=== PATIENT | female | born 1975 | race Hispanic/Latino ===

== ENCOUNTER 2018-04-15 09:43 | Outpatient (CLI) | payer BC ==
--- NOTE | 2018-04-15 11:38 | ULT ---
ABDOMINAL ULTRASOUND COMPLETE: History: 43-year-old female with R10.12, right lower quadrant pain. FINDINGS: The liver echogenicity is unremarkable. The gallbladder demonstrates no evidence for gallstones, wall thickening, edema, or pericholecystic fluid. Common bile duct is unremarkable. No intrahepatic ducta l dilatation. No liver masses. Visualized pancreas, IVC, aorta, and spleen are unremarkable. No renal hydronephrosis. No abscess or abnormal fluid collection. IMPRESSION: Normal abdominal ultrasound. POS: [facility]
--- NOTE | 2018-04-15 11:51 | ULT ---
PELVIC ULTRASOUND INCLUDING TRANSABDOMINAL AND TRANSVAGIAL WITH COLOR AND SPECTRAL DOPPLER IMAGING: History: 43-year-old female with history of R10.2, right lower quadrant pain. FINDINGS: The uterus measures 9.0 x 6.3 x 7.3 cm. Endometrium is thickened at 1.9 cm. Right ovary measures 4.6 x 3.4 x 2.3 cm and contains a complex/complicated appearing cystic focus in the right ovary measuring 2.1 x 2.2 x 2.5 cm. The left ovary measures 3.2 x 2.2 x 1.7 cm. IMPRESSION: Thickened echogenic endometrium, nonspecific. 2.1 x 2.2 x 2.5 cm complicated slightly complex left ov oli cyst/small cystic mass. No other significant acute process. POS: [facility]
--- NOTE | 2018-04-15 11:53 | RAD ---
SINGLE VIEW OF THE CHEST: History: Abdominal and chest pain, off and on for three months. FINDINGS: Single view of the chest shows a normal sized cardiomediastinal silhouette. There is no evidence of c onsolidation, mass, or pleural effusion. The bones are unremarkable. IMPRESSION: No evidence of acute cardiopulmonary disease. POS: [facility]
== END 2018-04-15 09:44 | disposition home or self-care (01) ==
LOC: BICULT 09:43
PROVIDERS: ATTEND Family Medicine
DX: R05 Cough (principal); R07.9 Chest pain, unspecified; R10.2 Pelvic and perineal pain; N83.9 Noninflammatory disorder of ovary, fallopian tube and broad ligament, unspecified; N83.202 Unspecified ovarian cyst, left side; R93.89 Abnormal findings on diagnostic imaging of other specified body structures
CPT/HCPCS: 71045; 76700; 76856

== ENCOUNTER 2018-07-30 15:32 | Outpatient (CLI) | payer BC ==
--- NOTE | 2018-07-30 16:18 | RAD ---
TWO VIEWS LUMBAR SPINE: History: Lumbago. Sciatica. Low back pain x 3-4 weeks. Comparison: None. FINDINGS: Five lumbar type vertebral bodies. Lumbar spine vertebral body height is maintained. No fracture. Dis c space heights are preserved. No spondylolisthesis or spondylosis. IMPRESSION: Unremarkable two views lumbar spine. POS: [facility]
== END 2018-07-30 15:33 | disposition home or self-care (01) ==
LOC: BICRAD 15:32
PROVIDERS: ATTEND Family Medicine
DX: M54.40 Lumbago with sciatica, unspecified side (principal); N83.209 Unspecified ovarian cyst, unspecified side
CPT/HCPCS: 72100

== ENCOUNTER 2020-11-30 10:17 | Inpatient (IN) | payer BC, SELFPAY ==
[2020-11-30 11:03] LABS: #Eosinphils 0.1 thou/uL (0.0-0.7); #Lymphocytes 1.7 thou/uL (1.20-3.40); #Monocytes 1.4 thou/uL (0.11-0.59); #Neutrophils 9.3 thou/uL (1.40-6.50); %Basophils 0.2 % (0.0-1.0); %Eosinophils 0.9 % (0.0-10.0); %Lymphocytes 13.2 % (21.0-51.0); %Monocytes 10.8 % (0.0-10.0); %Neutrophils 74.9 % (42.0-75.0); Hemoglobin 9.8 g/dL (12.0-16.0); Mean Corpuscular HGB CONC 30.5 g/dL (32.0-36.0); Mean Corpuscular Hemoglobin 21.9 pg (27.0-31.0); Mean Corpuscular Volume 71.8 fL (78.0-98.0); Mean Platelet Volume 8.8 fL (7.4-10.4); Platelet Count 332 thou/uL (130-400); RBC Distribution Width 15.8 % (11.5-14.5); Red Blood Cell (RBC) Count 4.46 mill/uL (4.20-5.40); White Blood Cell (WBC) Count 12.5 thou/uL (4.8-10.8)
[2020-11-30 11:38] LABS: Hypochromia SLIGHT = 6-15 cells (100X) (0-5/hpf); MDiff Complete? YES; Microcytosis SLIGHT = 6-15 cells (100X) (0-5/hpf); Platelet Morphology Comment Appears Adequate; Polychromasia SLIGHT = 2-3 cells (100X) (0-2/hpf)
[2020-11-30 11:46] LABS: ALT (SGPT) 48 U/L (8-55); AST (SGOT) 43 U/L (5-34); Alkaline Phosphatase 184 U/L (40-110); Anion Gap 13 mmol/L (10-20); BUN (Urea Nitrogen) 7 mg/dL (7.0-18.7); Bilirubin, Total 0.5 mg/dL (0.2-1.2); Calc. Creatinine Clearance 0 mL/min (70-130); Calcium 9.3 mg/dL (7.8-10.44); Carbon Dioxide 22 mmol/L (22-29); Chloride 105 mmol/L (98-107); Globulin 3.8 g/dL (2.4-3.5); Glucose 103 mg/dL (70-105); Potassium 4.3 mmol/L (3.5-5.1); Protein, Total 7.8 g/dL (6.0-8.3); Sodium 136 mmol/L (136-145)
[2020-11-30 12:02] LABS: Bilirubin Negative (Negative); Blood, Urine Negative (Negative); Clarity Clear (Clear); Glucose, Urine (Dipstick) Normal (Negative); Ketone, Urine Negative (Negative); Leukocyte Negative Leu/uL (Negative); Nitrite Negative (Negative); Protein, Urine (Dipstick) 10 mg/dL (Neg-Trace); Specific Gravity, Urine 1.017 (1.002-1.036); Urobilinogen Normal mg/dL (Less than 2)
[2020-11-30 12:04] LABS: Pregnancy Test - Urine (BHCG) Negative (Negative); Pregu Control Background? CLEAR/WHITE (CLR/WHITE); Pregu Control Bar Appear? YES (CONTROL BAR); Specific Gravity 1.017 (1.002-1.036)
[2020-11-30] MEDS ORDERED: Morphine 4 MG/ML VIAL ONE (13:03)
[2020-11-30] MEDS ORDERED: Iopamidol 370 76% 100 ML VIAL ONE (14:05)
[2020-11-30] MEDS ORDERED: Iopamidol 370 76% 50 ML VIAL FS ONE (14:05)
[2020-11-30] MEDS ORDERED: Piperacillin/Tazobactam 4.5 GM VIAL ONE (18:03)
[2020-11-30] MEDS ORDERED: Promethazine HCl 12.5 MG in Sodium Chloride 0.9% 50 ML IVPB PRN (21:37)
[2020-11-30] MEDS ORDERED: Morphine 2 MG/ML VIAL SLOW IVP PRN (21:37)
[2020-11-30] MEDS ORDERED: cloNIDine 0.1 MG TAB PO PRN (21:37)
[2020-11-30] MEDS ORDERED: Labetalol HCl 100 MG/20 ML VIAL SLOW IVP PRN (21:37)
[2020-11-30] MEDS ORDERED: hydrALAZINE 20 MG/ML VIAL SLOW IVP PRN (21:37)
[2020-11-30] MEDS ORDERED: Guaifenesin DM 100-10/5 ML UDCUP PO PRN (21:37)
[2020-11-30] MEDS ORDERED: Electrolyte Replacement Protocol 1 EACH FS PRN (21:45)
[2020-11-30 23:35] VITALS: BMI 29.9
[2020-12-01] MEDS: Vancomycin 1 GM in Premix Bag 1 BAG IVPB SCH ×3 (00:29→16:44)
[2020-12-01] MEDS: Sodium Chloride 0.9% 1,000 ML IV SCH ×4 (00:30→22:00)
[2020-12-01 05:57] LABS: #Eosinphils 0.2 thou/uL (0.0-0.7); #Lymphocytes 1.8 thou/uL (1.20-3.40); #Monocytes 1.5 thou/uL (0.11-0.59); #Neutrophils 7.5 thou/uL (1.40-6.50); %Basophils 0.2 % (0.0-1.0); %Eosinophils 1.6 % (0.0-10.0); %Lymphocytes 16.1 % (21.0-51.0); %Monocytes 13.7 % (0.0-10.0); %Neutrophils 68.4 % (42.0-75.0); Mean Corpuscular HGB CONC 32.4 g/dL (32.0-36.0); Mean Corpuscular Hemoglobin 23.7 pg (27.0-31.0); Mean Platelet Volume 8.9 fL (7.4-10.4); Platelet Count 289 thou/uL (130-400); RBC Distribution Width 15.7 % (11.5-14.5); Red Blood Cell (RBC) Count 3.82 mill/uL (4.20-5.40); White Blood Cell (WBC) Count 10.9 thou/uL (4.8-10.8)
[2020-12-01 06:21] LABS: Anion Gap 14 mmol/L (10-20); BUN (Urea Nitrogen) 6 mg/dL (7.0-18.7); Calc. Creatinine Clearance 152 mL/min (70-130); Calcium 8.6 mg/dL (7.8-10.44); Carbon Dioxide 19 mmol/L (22-29); Chloride 106 mmol/L (98-107); Glucose 101 mg/dL (70-105); Magnesium 2.2 mg/dL (1.6-2.6); Potassium 3.9 mmol/L (3.5-5.1); Sodium 135 mmol/L (136-145)
[2020-12-01 06:28] LABS: ALT (SGPT) 40 U/L (8-55); AST (SGOT) 38 U/L (5-34); Albumin 3.4 g/dL (3.5-5.0); Alkaline Phosphatase 176 U/L (40-110); Bilirubin, Direct 0.2 mg/dL (0.1-0.3); Bilirubin, Total 0.5 mg/dL (0.2-1.2); Protein, Total 6.6 g/dL (6.0-8.3)
[2020-12-01] MEDS: Piperacillin/Tazobactam 4.5 GM in Sodium Chloride 0.9% 100 ML IVPB SCH ×3 (08:50→23:46)
[2020-12-01] MEDS: HYDROcodone/Acetaminophen 5/325 mg Tablet PO PRN ×2 (08:51→20:49)
[2020-12-01] MEDS: Famotidine 20 MG TAB PO SCH ×2 (08:51→20:50)
[2020-12-01] MEDS: Polyethylene Glycol 3350 17 GM Packet PO SCH (08:51)
[2020-12-01 11:37] LABS: SARS-CoV-2 PCR by NAA Not Detected (NotDetected)
[2020-12-01] MEDS: Ondansetron PF 4 MG/2 ML Vial IVP PRN ×2 (11:48→19:13)
[2020-12-01] MEDS: Acetaminophen 325 MG TAB PO PRN (16:07)
[2020-12-01] MEDS ORDERED: Sodium Chloride 0.9% 500 ML IV SCH (16:30)
[2020-12-01] MEDS: Enoxaparin Sodium 40 MG/0.4 ML SYRINGE SC SCH (20:48)
[2020-12-02 00:32] LABS: Vancomycin, Trough 12.6 ug/mL
[2020-12-02] MEDS: Acetaminophen 325 MG TAB PO PRN (00:38)
[2020-12-02] MEDS: Vancomycin 1 GM in Premix Bag 1 BAG IVPB SCH (00:39)
[2020-12-02] MEDS: Sodium Chloride 0.9% 1,000 ML IV SCH ×3 (04:20→23:13)
[2020-12-02 04:43] LABS: #Eosinphils 0.3 thou/uL (0.0-0.7); #Lymphocytes 2.1 thou/uL (1.20-3.40); #Monocytes 0.9 thou/uL (0.11-0.59); #Neutrophils 5.6 thou/uL (1.40-6.50); %Basophils 0.1 % (0.0-1.0); %Eosinophils 3.8 % (0.0-10.0); %Monocytes 10.4 % (0.0-10.0); %Neutrophils 62.6 % (42.0-75.0); Hemoglobin 8.6 g/dL (12.0-16.0); Mean Corpuscular HGB CONC 32.7 g/dL (32.0-36.0); Mean Corpuscular Volume 73.3 fL (78.0-98.0); Mean Platelet Volume 8.8 fL (7.4-10.4); Platelet Count 298 thou/uL (130-400); RBC Distribution Width 15.6 % (11.5-14.5); White Blood Cell (WBC) Count 8.9 thou/uL (4.8-10.8)
[2020-12-02 05:07] LABS: Anion Gap 9 mmol/L (10-20); BUN (Urea Nitrogen) 7 mg/dL (7.0-18.7); Calc. Creatinine Clearance 136 mL/min (70-130); Calcium 8.5 mg/dL (7.8-10.44); Carbon Dioxide 23 mmol/L (22-29); Chloride 110 mmol/L (98-107); Glucose 93 mg/dL (70-105); Magnesium 2.2 mg/dL (1.6-2.6); Potassium 3.7 mmol/L (3.5-5.1); Sodium 138 mmol/L (136-145)
[2020-12-02 05:08] LABS: ALT (SGPT) 47 U/L (8-55); AST (SGOT) 47 U/L (5-34); Albumin 3.3 g/dL (3.5-5.0); Alkaline Phosphatase 167 U/L (40-110); Bilirubin, Direct 0.2 mg/dL (0.1-0.3); Bilirubin, Total 0.4 mg/dL (0.2-1.2); Protein, Total 6.5 g/dL (6.0-8.3)
[2020-12-02] MEDS ORDERED: Vancomycin HCl 1.25 GM in Sodium Chloride 0.9% 250 ML 250 ML IVPB SCH (08:00)
[2020-12-02] MEDS: Piperacillin/Tazobactam 4.5 GM in Sodium Chloride 0.9% 100 ML IVPB SCH ×3 (09:52→23:13)
[2020-12-02] MEDS: Polyethylene Glycol 3350 17 GM Packet PO SCH (09:53)
[2020-12-02] MEDS: Famotidine 20 MG TAB PO SCH ×2 (09:53→20:33)
[2020-12-02] MEDS: HYDROcodone/Acetaminophen 5/325 mg Tablet PO PRN ×2 (10:01→20:37)
[2020-12-02] MEDS: Vancomycin HCl 1.25 GM in Sodium Chloride 0.9% 250 ML 250 ML IVPB SCH ×2 (12:10→20:33)
[2020-12-02] MEDS: Ondansetron PF 4 MG/2 ML Vial IVP PRN (17:38)
[2020-12-02] MEDS: Enoxaparin Sodium 40 MG/0.4 ML SYRINGE SC SCH (20:33)
[2020-12-03] MEDS: Sodium Chloride 0.9% 1,000 ML IV SCH ×4 (04:35→20:46)
[2020-12-03] MEDS: Vancomycin HCl 1.25 GM in Sodium Chloride 0.9% 250 ML 250 ML IVPB SCH ×2 (04:35→13:57)
[2020-12-03] MEDS: HYDROcodone/Acetaminophen 5/325 mg Tablet PO PRN (04:37)
[2020-12-03 06:45] LABS: #Eosinphils 0.4 thou/uL (0.0-0.7); #Lymphocytes 1.8 thou/uL (1.20-3.40); #Monocytes 0.7 thou/uL (0.11-0.59); #Neutrophils 5.8 thou/uL (1.40-6.50); %Basophils 0.5 % (0.0-1.0); %Eosinophils 4.3 % (0.0-10.0); %Lymphocytes 20.3 % (21.0-51.0); %Monocytes 7.7 % (0.0-10.0); %Neutrophils 67.2 % (42.0-75.0); Mean Corpuscular HGB CONC 32.6 g/dL (32.0-36.0); Mean Corpuscular Hemoglobin 23.7 pg (27.0-31.0); Mean Corpuscular Volume 72.9 fL (78.0-98.0); Mean Platelet Volume 8.7 fL (7.4-10.4); Platelet Count 305 thou/uL (130-400); RBC Distribution Width 15.5 % (11.5-14.5); Red Blood Cell (RBC) Count 3.35 mill/uL (4.20-5.40); White Blood Cell (WBC) Count 8.6 thou/uL (4.8-10.8)
[2020-12-03 07:11] LABS: Anion Gap 10 mmol/L (10-20); BUN (Urea Nitrogen) 5 mg/dL (7.0-18.7); Calc. Creatinine Clearance 138 mL/min (70-130); Calcium 8.1 mg/dL (7.8-10.44); Carbon Dioxide 22 mmol/L (22-29); Chloride 110 mmol/L (98-107); Glucose 95 mg/dL (70-105); Potassium 3.8 mmol/L (3.5-5.1); Sodium 138 mmol/L (136-145)
[2020-12-03] MEDS ORDERED: Magnesium 2 GM/50 ML 2 GM in Premix Bag 1 BAG IVPB SCH (07:30)
[2020-12-03] MEDS: Famotidine 20 MG TAB PO SCH ×2 (09:31→20:47)
[2020-12-03] MEDS: Piperacillin/Tazobactam 4.5 GM in Sodium Chloride 0.9% 100 ML IVPB SCH ×2 (09:31→15:54)
[2020-12-03] MEDS: Polyethylene Glycol 3350 17 GM Packet PO SCH (09:31)
[2020-12-03 10:52] LABS: Vancomycin, Trough 28.9 ug/mL
[2020-12-03] MEDS: Ondansetron PF 4 MG/2 ML Vial IVP PRN (11:18)
[2020-12-03] MEDS: Acetaminophen 325 MG TAB PO PRN (15:57)
[2020-12-03] MEDS: Vancomycin 1 GM in Premix Bag 1 BAG IVPB SCH (20:45)
[2020-12-03] MEDS: Enoxaparin Sodium 40 MG/0.4 ML SYRINGE SC SCH (20:46)
[2020-12-04] MEDS: Piperacillin/Tazobactam 4.5 GM in Sodium Chloride 0.9% 100 ML IVPB SCH ×2 (00:43→08:59)
[2020-12-04] MEDS: Vancomycin 1 GM in Premix Bag 1 BAG IVPB SCH (04:10)
[2020-12-04 06:32] LABS: #Eosinphils 0.4 thou/uL (0.0-0.7); #Lymphocytes 1.4 thou/uL (1.20-3.40); #Monocytes 0.7 thou/uL (0.11-0.59); #Neutrophils 6.9 thou/uL (1.40-6.50); %Basophils 0.2 % (0.0-1.0); %Eosinophils 3.9 % (0.0-10.0); %Lymphocytes 14.6 % (21.0-51.0); %Monocytes 7.3 % (0.0-10.0); %Neutrophils 73.9 % (42.0-75.0); Hemoglobin 8.4 g/dL (12.0-16.0); Mean Corpuscular HGB CONC 32.9 g/dL (32.0-36.0); Mean Corpuscular Hemoglobin 23.8 pg (27.0-31.0); Mean Corpuscular Volume 72.3 fL (78.0-98.0); Mean Platelet Volume 8.7 fL (7.4-10.4); Platelet Count 344 thou/uL (130-400); RBC Distribution Width 15.6 % (11.5-14.5); Red Blood Cell (RBC) Count 3.54 mill/uL (4.20-5.40); White Blood Cell (WBC) Count 9.3 thou/uL (4.8-10.8)
[2020-12-04 06:50] LABS: Anion Gap 12 mmol/L (10-20); BUN (Urea Nitrogen) 5 mg/dL (7.0-18.7); Calc. Creatinine Clearance 113 mL/min (70-130); Calcium 8.2 mg/dL (7.8-10.44); Carbon Dioxide 21 mmol/L (22-29); Chloride 107 mmol/L (98-107); Glucose 117 mg/dL (70-105); Magnesium 2.4 mg/dL (1.6-2.6); Potassium 3.9 mmol/L (3.5-5.1); Sodium 136 mmol/L (136-145)
[2020-12-04] MEDS: Sodium Chloride 0.9% 1,000 ML IV SCH ×2 (07:00→19:18)
[2020-12-04] MEDS: Acetaminophen 325 MG TAB PO PRN (09:04)
[2020-12-04] MEDS: Famotidine 20 MG TAB PO SCH ×2 (09:05→21:06)
[2020-12-04] MEDS: Saccharomyces boulardii 250 MG CAP PO SCH (09:05)
[2020-12-04] MEDS: Polyethylene Glycol 3350 17 GM Packet PO SCH (09:05)
[2020-12-04] MEDS: Multivit, Therapeutic 1 TAB PO SCH (09:05)
[2020-12-04] MEDS: Ibuprofen 200 MG TAB PO SCH (17:26)
[2020-12-04] MEDS ORDERED: Senokot S 8.6-50 MG TAB PO SCH ×2 (21:00)
[2020-12-05] MEDS: Ibuprofen 200 MG TAB PO SCH (08:17)
[2020-12-05] MEDS: Saccharomyces boulardii 250 MG CAP PO SCH (08:18)
[2020-12-05] MEDS: Multivit, Therapeutic 1 TAB PO SCH (08:18)
[2020-12-05] MEDS: Famotidine 20 MG TAB PO SCH (08:18)
[2020-12-05] MEDS: Polyethylene Glycol 3350 17 GM Packet PO SCH (08:19)
[2020-12-05] MEDS: Sodium Chloride 0.9% 1,000 ML IV SCH ×2 (10:19→12:13)
[2020-12-05 11:37] VITALS: BP 114/78; TEMP 98.4
== END 2020-12-05 12:40 | disposition home or self-care (01) | DRG 871 ==
LOC: ERS 10:17 → 2NO 17:59 → T4-A 12-02 12:55
PROVIDERS: ADMIT Internal Medicine; ATTEND Internal Medicine
DX: A41.51 Sepsis due to Escherichia coli [E. coli] (principal); Z20.822 Contact with and (suspected) exposure to COVID-19; N15.1 Renal and perinephric abscess; N12 Tubulo-interstitial nephritis, not specified as acute or chronic; E87.1 Hypo-osmolality and hyponatremia; R74.01 Elevation of levels of liver transaminase levels; R65.20 Severe sepsis without septic shock; E66.9 Obesity, unspecified; D50.9 Iron deficiency anemia, unspecified; Z98.51 Tubal ligation status; Z68.30 Body mass index [BMI] 30.0-30.9, adult; Z87.442 Personal history of urinary calculi
CPT/HCPCS: 36415; 74176; 74177; 76705; 80048; 80053; 80076; 80202; 81003; 81025; 83605; 83690; 83735; 85025; 87040; 87077; 87086; 87186; 96365; 96375; J1650; J1956; J2270; J2405; J2543; J3370; J3475; J3490; J7050; Q9967; U0003; U0005